=== PATIENT | female | born 1985 | race Two or more races ===

== ENCOUNTER 2022-04-09 17:59 | Emergency (ER) | payer SELFPAY ==
--- NOTE | 2022-04-09 18:44 | ED.NURSE ---
Left without being seen, signed refusal of services form. Leaves ED ambulatory, tolerates well.
== END 2022-04-09 20:32 | disposition left against medical advice (07) ==
LOC: ED 20:24
DX: Z53.21 Procedure and treatment not carried out due to patient leaving prior to being seen by health care provider (principal)
CPT/HCPCS: 99281